=== PATIENT | female | born 1945 | race Caucasian/White ===

== ENCOUNTER → 2017-11-02 | Outpatient (CLI) | payer OTHER | LOC: BMCIMAGING 08:31 | PROVIDERS: ATTEND Internal Medicine | DX: Z12.31 Encounter for screening mammogram for malignant neoplasm of breast (principal) ==

== ENCOUNTER → 2018-12-31 | Outpatient (CLI) | payer OTHER | LOC: BMCIMAGING 08:19 ==

== ENCOUNTER → 2019-01-09 | Outpatient (CLI) | payer OTHER | LOC: BMCIMAGING 10:00 ==